=== PATIENT | female | born 1980 | race African-American/Black ===

== ENCOUNTER 2020-08-17 11:42 | Observation (INO) ==
[2020-08-17] MEDS ORDERED: ACETAMINOPHEN 325 MG TABLET PO PRN (13:22)
[2020-08-17] MEDS ORDERED: ONDANSETRON 4 MG/2 ML VIAL IV PRN (13:22)
[2020-08-17] MEDS ORDERED: SODIUM CHLORIDE 0.9% 1,000 ML IV PRN ×2 (14:53→15:56)
[2020-08-17] MEDS: DOCUSATE SODIUM 100 MG CAPSULE PO SCH (20:43)
[2020-08-17 23:52] LABS: Hematocrit 30.5 VOL% (35.7-47.0)
[2020-08-18 05:07] LABS: Basophils # 0.1 10*3/uL (0.0-0.2); Basophils % 0.7 % (0.0-0.8); Eosinophils # 0.4 10*3/uL (0.0-0.87); Eosinophils % 4.2 % (0.00-10.9); Hematocrit 31.5 VOL% (35.7-47.0); Hemoglobin 9.4 GM/DL (12.0-16.0); Immature Granulocytes % 0.2 %; Immature Granulocytes Absolute 0.02 #; Lymphocytes # 3.6 10*3/uL (1.4-4.0); Lymphocytes % 41.9 % (21.3-54.2); Mean Corpuscular HGB Conc 29.8 GM/DL (32-36); Mean Corpuscular Volume 74.3 FL (87-102); Mean Platelet Volume 10.3 FL (9.6-12.0); Monocytes % 7.3 % (1.7-12.7); Neutrophils % 45.7 % (38.7-73.9); Platelet Count 496 T/CUMM (130-400); Red Blood Count 4.24 MC/CUMM (3.8-5.5); Red Cell Distribution Width 25.7 % (9.3-17.3); White Blood Count 8.6 T/CUMM (4-12)
[2020-08-18 05:30] LABS: Calcium 8.2 MG/DL (8.5-10.1); Eosinophils 5 % (0-10); Hypochromasia 1+; Lymphocytes 36 % (20-55); Microcytosis 1+; Osmolality,Calculated 276.4 MOS/KG (273-304); Ovalocytes Slight; Platelet Estimate Adequate; Segmented Neutrophils 51 % (50-85); Total Cells Counted 100
[2020-08-18 07:47] VITALS: BP 108/67
[2020-08-18] MEDS: DOCUSATE SODIUM 100 MG CAPSULE PO SCH (08:01)
[2020-08-18] MEDS ORDERED: PANTOPRAZOLE 40 MG TABLET PO SCH (09:00)
[2020-08-18] MEDS ORDERED: POTASSIUM CHLORIDE 20 MEQ TABLET PO ONE (10:00)
[2020-08-18] MEDS ORDERED: CYANOCOBALAMIN 1000 MCG/1 ML VIAL IM ONE (10:55)
== END 2020-08-18 10:56 | disposition home or self-care (01) ==
LOC: N.3E
PROVIDERS: ADMIT Family Medicine; ATTEND Family Medicine